=== PATIENT | female | born 1980 | race African-American/Black ===

== ENCOUNTER 2017-08-15 12:02 | Emergency (ER) | payer BC ==
[2017-08-15 13:05] VITALS: BP 137/81
--- NOTE | 2017-08-15 13:21 | UC ---
Throat Pain/Nasal Tavon HPI - HPI Summary HPI Summary: 36 Y/O female presents with complaint of malaise, chills, sinus congestion, and sore throat x 3 days. Denies nausea, vomiting, and shortness of breath. Blood pressure is elevated without history of HTN, most likely due to current illness. Has follow up planned with PMD. Medical history and medications reviewed and is negative for cardiac or respiratory disease. - History of Current Complaint Chief Complaint: UCRespiratory Stated Complaint: CONGESTED Time Seen by Provider: 08/15/17 13:12 Hx Obtained From: Patient Hx Last Menstrual Period: 04/15/16 ?: No Onset/Duration: Gradual Onset Severity: Moderate Pain Intensity: 6 Pain Scale Used: 0-10 Numeric Cough: Nonproductive Associated Signs & Symptoms: Positive: Negative - Allergies/Home Medications Allergies/Adverse Reactions: Allergies Allergy/AdvReac Type Severity Reaction Status Date / Time Chocolate AdvReac Headache Verified 10/15/15 18:18 Home Medications: Home Medications [id number] [Nyquil Severe Cold/Flu 5-6.25-10-325 mg/15Ml] 1 liq PO 08/15/17 [History] PMH/Surg Hx/FS Hx/Imm Hx Previously Healthy: Yes - Surgical History Surgical History: None - Family History Known Family History: Positive: Hypertension, Diabetes - Social History Alcohol Use: Rare Substance Use Type: None Smoking Status (MU): Never Smoked Tobacco Review of Systems Constitutional: Chills Skin: Negative Eyes: Negative ENT: Sore Throat Respiratory: Cough Cardiovascular: Negative Gastrointestinal: Negative Genitourinary: Negative Motor: Negative Neurovascular: Negative Musculoskeletal: Negative Neurological: Negative Psychological: Negative Is Patient Immunocompromised?: No All Other Systems Reviewed And Are Negative: Yes Physical Exam Triage Information Reviewed: Yes Appearance: Well-Appearing Vital Signs: Initial Vital Signs Temp 98.2 F 08/15/17 13:00 Pulse 91 08/15/17 13:00 Resp 18 08/15/17 13:00 BP 137/81 08/15/17 13:00 Pulse Ox 100 08/15/17 13:00 Vital Signs Reviewed: Yes Eye Exam: Normal ENT: Positive: Pharyngeal erythema, Tonsillar swelling Dental Exam: Normal Neck exam: Normal Neck: Positive: No Lymphadenopathy Respiratory Exam: Normal Respiratory: Positive: Lungs clear, Normal breath sounds Cardiovascular Exam: Normal Cardiovascular: Positive: RRR Abdominal Exam: Normal Bowel Sounds: Positive: Present Musculoskeletal Exam: Normal Neurological Exam: Normal Psychological Exam: Normal Skin Exam: Normal Throat Pain/Nasal Course/Dx - Differential Dx/Diagnosis Differential Diagnosis/HQI/PQRI: Influenza, Pharyngitis, Tonsillitis Provider Diagnoses: Viral illness, pharyngitis Discharge - Discharge Plan Condition: Stable Disposition: HOME Patient Education Materials: Pharyngitis (ED) Referrals: Tavon Pandya MD [Primary Care Provider] - Additional Instructions: Your strep and flu tests were negative. You most likely have a viral illness. Get plenty of rest and increase fluids. Please return to urgent care for worsening symptoms, difficulty swallowing fluids, or for shortness of breath.
== END 2017-08-15 13:45 | disposition home or self-care (01) ==
LOC: UCEAST 12:02
DX: B34.9 Viral infection, unspecified (principal); J02.9 Acute pharyngitis, unspecified
CPT/HCPCS: 87502; 87651; 99211; G0463

== ENCOUNTER 2018-01-17 07:22 | Emergency (ER) | payer BC ==
[2018-01-17 07:33] VITALS: BP 133/76
--- NOTE | 2018-01-17 08:25 | UC ---
Skin Complaint HPI - HPI Summary HPI Summary: Used hair relaxer about 3 weeks ago after which she developed an itchy rash on left side of neck, started as small area with 'bumps' but has expanded in size. Continues to be very itchy. Also c/o itchy rash on forearms which has occurred in the past. Denies fever, wheezing, SOB or dysphagia. - History of Current Complaint Chief Complaint: UCSkin Time Seen by Provider: 01/17/18 08:01 Stated Complaint: RASH Hx Obtained From: Patient Hx Last Menstrual Period: 12/30/17 Onset/Duration: Sudden Onset, Lasting Weeks Skin Exposure Onset/Duration: Weeks Ago Timing: Constant Onset Severity: Mild Current Severity: Moderate Pain Intensity: 0 Location: Discrete, Other - neck and arms Aggravating Factor(s): Nothing Alleviating Factor(s): Nothing Associated Signs & Symptoms: Positive: Negative Related History: Other: - use of hair products - Allergy/Home Medications Allergies/Adverse Reactions: Allergies Allergy/AdvReac Type Severity Reaction Status Date / Time chocolate Allergy Headache Uncoded 01/17/18 07:34 Review of Systems All Other Systems Reviewed And Are Negative: Yes PMH/Surg Hx/FS Hx/Imm Hx Previously Healthy: Yes - Surgical History Surgical History: None - Family History Known Family History: Positive: Hypertension, Diabetes - Social History Alcohol Use: Rare Substance Use Type: None Smoking Status (MU): Never Smoked Tobacco Physical Exam Triage Information Reviewed: Yes Vital Signs: Initial Vital Signs Temp 97.8 F 01/17/18 07:28 Pulse 79 01/17/18 07:28 Resp 16 01/17/18 07:28 BP 133/76 01/17/18 07:28 Pulse Ox 97 01/17/18 07:28 Vital Signs Reviewed: Yes Eyes: Positive: Conjunctiva Clear ENT: Positive: Hearing grossly normal, TMs normal Neck: Positive: Supple, Nontender, No Lymphadenopathy Respiratory: Positive: Chest non-tender, Lungs clear, Normal breath sounds, No respiratory distress Cardiovascular: Positive: RRR, No Murmur, Pulses Normal, Brisk Capillary Refill Abdomen Description: Positive: Nontender Bowel Sounds: Positive: Present Skin Exam: Other - papulo macular rash on left side of neck approximately 4x5 inches in dimension. No satellite lesions. Scattered fine papular rash on dorsum both forearms. Course/Dx - Course Course Of Treatment: skin reaction after applying hair product, start Prednisone orally and topical hydrocort. Continue with hydroxyzine tablets at night due to nocturnal pruritus, follow up with PCP to monitor blood pressure, f /u with dermatology - Diagnoses Provider Diagnoses: Allergic rash/contact dermatitis. Elevated BP without diagnosis of HTN Discharge - Sign-Out/Discharge Documenting (check all that apply): Discharge/Admit/Transfer - Discharge Plan Condition: Good Disposition: HOME Prescriptions: Hydrocortisone 2.5% CREAM(NF) 1 applic TOPICAL BID 7 Days #1 tube hydrOXYzine HCL TAB* [Atarax 25 MG TAB*] 25 mg PO BEDTIME PRN 20 Days #20 tab PRN Reason: Itching predniSONE TAB* [Deltasone 20 MG TAB*] 40 mg PO DAILY 3 Days #6 tab Patient Education Materials: Prednisone (By mouth), Hydroxyzine (By mouth), Hydrocortisone (On the skin), Allergies (ED), Hypertension (ED) Referrals: Tavon Pandya MD [Primary Care Provider] - - Billing Disposition and Condition Condition: GOOD Disposition: Home
== END 2018-01-17 08:23 | disposition home or self-care (01) ==
LOC: UCEAST 07:22
DX: L25.9 Unspecified contact dermatitis, unspecified cause (principal); R03.0 Elevated blood-pressure reading, without diagnosis of hypertension
CPT/HCPCS: 99212; G0463

== ENCOUNTER 2018-03-17 09:58 | Emergency (ER) | payer BC ==
--- NOTE | 2018-03-17 10:19 | UC ---
Eye Complaint HPI - HPI Summary HPI Summary: A 37 y/o F presents to [facility] [place] with c/o bilat eye itching and redness onset one week ago. She states her eyes are burning. Denies rhinorrhea, eye crusting. She s been using Visine-A to no relief. She took Zyrtec 1x last night which helped alleviate the sx. Pt does not wear contact lenses. She denies seasonal allergies. - History of Current Complaint Stated Complaint: EYE ISSUE Time Seen by Provider: 03/17/18 10:12 Hx Obtained From: Patient Hx Last Menstrual Period: 12/30/17 Onset/Duration: Lasting Weeks - 1 week, Still Present Timing: Constant Location of Injury: Conjunctiva Alleviating Factor(s): Other - Zyrtec Associated Signs And Symptoms: Negative: Drainage (Clear), Drainage (Purulent) - Allergies/Home Medications Allergies/Adverse Reactions: Allergies Allergy/AdvReac Type Severity Reaction Status Date / Time chocolate Allergy Headache Uncoded 03/17/18 10:20 PMH/Surg Hx/FS Hx/Imm Hx Previously Healthy: Yes - neg: allergies Other Respiratory History: neg: COPD Other GI/ History: neg: renal dz - Surgical History Surgical History: None - Family History Known Family History: Positive: Hypertension, Diabetes - Social History Occupation: Employed Full-time Lives: Alone Alcohol Use: Rare Substance Use Type: None Smoking Status (MU): Never Smoked Tobacco Review of Systems Constitutional: Other - neg: fever Eyes: Eye Redness - bilat, Other - pos: bilat eye itching; neg: eye crusting ENT: Other - neg: rhinorrhea All Other Systems Reviewed And Are Negative: Yes Physical Exam - Summary Physical Exam Summary: General: well-appearing, no pain distress Skin: warm, color reflects adequate perfusion, dry Head: normal Eyes: EOMI, NIKOLAY ENT: normal Neck: supple, nontender Respiratory: CTA, breath sounds present Cardiovascular: RRR Abdomen: soft, nontender Bowel: present Musculoskeletal: normal, strength/ROM intact Neurological: sensory/motor intact, A&O x3 Psychological: affect/mood appropriate Triage Information Reviewed: Yes Vital Signs Reviewed: Yes Eye Complaint Course/Dx - Course Course Of Treatment: BP noted and advised to follow up with PCP. Medications reviewed. Allergies noted. - Differential Dx/Diagnosis Provider Diagnoses: CONJUNCTIVITIS Discharge - Sign-Out/Discharge Documenting (check all that apply): Patient Departure - DC All imaging exams completed and their final reports reviewed: No Studies - Discharge Plan Condition: Stable Disposition: HOME Prescriptions: Ketotifen Fumarate [Allergy Eye Drops] 1 drop OP Q8H #5 ml Tobramycin 0.3% OPHTH.PAWAN* 1 drop BOTH EYES Q4H #1 btl Patient Education Materials: Conjunctivitis (ED) Referrals: Tavon Pandya MD [Primary Care Provider] - Additional Instructions: FOLLOW UP WITH YOUR DOCTOR IF NOT COMPLETELY IMPROVED. GET RECHECKED FOR ANY WORSENING OF YOUR CONDITION OR QUESTIONS OR CONCERNS. - Billing Disposition and Condition Condition: STABLE Disposition: Home - Attestation Statements Document Initiated by Scribe: Yes Documenting Scribe: Arlyn Mazariegos Provider For Whom Nolan is Documenting (Include Credential): Adrian Cortes MD Scribe Attestation: Arlyn Marshall, scribed for Adrian Cortes MD on 03/17/18 at 1201. Scribe Documentation Reviewed: Yes Provider Attestation: The documentation as recorded by the Arlyn dejesus accurately reflects the service I personally performed and the decisions made by Adrian lindsay MD
[2018-03-17 10:20] VITALS: BP 144/81
== END 2018-03-17 10:30 | disposition home or self-care (01) ==
LOC: UCEAST 09:58
DX: H10.9 Unspecified conjunctivitis (principal); Z91.018 Allergy to other foods
CPT/HCPCS: 99212; G0463

== ENCOUNTER 2018-10-30 07:26 | Emergency (ER) | payer BC ==
[2018-10-30 07:36] VITALS: BP 115/76
[2018-10-30 08:01] LABS: Influenza A Molecular POSITIVE (Negative)
--- NOTE | 2018-10-30 08:12 | UC ---
FLU HPI - HPI Summary HPI Summary: 38-year-old female presents with 3 day history of general malaise, fatigue, body aches, headache, fever, chills, nasal congestion, runny nose, sore throat, nonproductive cough, couple episodes of loose stool. States her son was diagnosed 4 days ago with the flu. Denies ear pain, dysphagia, chest pain, shortness of breath, abdominal pain, nausea, or vomiting. - History of Current Complaint Chief Complaint: UCGeneralIllness Stated Complaint: FEVER COUGH BODY ACHES Time Seen by Provider: 10/30/18 08:09 Hx Obtained From: Patient Hx Last Menstrual Period: 10/29/18 Pain Intensity: 9 - Allergy/Home Medications Allergies/Adverse Reactions: Allergies Allergy/AdvReac Type Severity Reaction Status Date / Time chocolate Allergy Headache Uncoded 10/30/18 07:34 PMH/Surg Hx/FS Hx/Imm Hx Previously Healthy: Yes - Denies significant PMH - Surgical History Surgical History: None - Family History Known Family History: Positive: Hypertension, Diabetes - Social History Occupation: Employed Full-time Lives: With Family Alcohol Use: Rare Substance Use Type: None Smoking Status (MU): Never Smoked Tobacco Review of Systems All Other Systems Reviewed And Are Negative: Yes Constitutional: Positive: Fever, Chills, Fatigue Skin: Negative: Rash Eyes: Negative: Drainage, Eye Redness ENT: Positive: Sore Throat, Nasal Discharge, Sinus Congestion. Negative: Sinus Pain/Tenderness Respiratory: Positive: Cough. Negative: Shortness Of Breath Cardiovascular: Negative: Palpitations, Chest Pain Gastrointestinal: Positive: Diarrhea. Negative: Abdominal Pain, Vomiting, Nausea Genitourinary: Positive: Negative Musculoskeletal: Positive: Myalgia Neurological: Positive: Headache Is Patient Immunocompromised?: No Physical Exam - Summary Physical Exam Summary: GENERAL APPEARANCE: Well developed, well nourished, alert and cooperative, and appears to be in no acute distress. EYES: Conjunctiva clear. No drainage. EARS: External auditory canals and tympanic membranes clear, hearing grossly intact. NOSE: Mild nasal congestion. No nasal discharge. THROAT: Pharyngeal erythema. No tonsilar inflammation, swelling, exudate, or lesions. Uvula midline. Oral cavity normal. Teeth and gingiva in good general condition. NECK: Neck supple, non-tender without lymphadenopathy. CARDIAC: Normal S1 and S2. No S3, S4 or murmurs. Rhythm is regular. There is no peripheral edema, cyanosis or pallor. Extremities are warm and well perfused. Capillary refill is less than 2 seconds. Peripheral pulses intact. LUNGS: Clear to auscultation without rales, rhonchi, wheezing or diminished breath sounds. ABDOMEN: Positive bowel sounds. Soft, nondistended, nontender. No guarding or rebound. No masses or hepatosplenomegally. MUSKULOSKELETAL: ROM intact to all extremities. No joint erythema or tenderness. Normal muscular development. Normal gait. SKIN: Skin normal color, texture and turgor with no lesions or eruptions. Triage Information Reviewed: Yes Vital Signs: Initial Vital Signs Temp 98.1 F 10/30/18 07:31 Pulse 100 10/30/18 07:31 Resp 18 10/30/18 07:31 BP 115/76 10/30/18 07:31 Pulse Ox 97 10/30/18 07:31 Vital Signs Reviewed: Yes Flu Course/Dx - Course Course Of Treatment: 38-year-old female presents with 3 day history of general malaise, fatigue, body aches, headache, fever, chills, nasal congestion, runny nose, sore throat, nonproductive cough, couple episodes of loose stool. States her son was diagnosed 4 days ago with the flu. Denies ear pain, dysphagia, chest pain, shortness of breath, abdominal pain, nausea, or vomiting. Afebrile. Vital signs stable. Exam was remarkable for mild nasal congestion, pharyngeal erythema, and a dry nonproductive cough. Considering the duration of her symptoms the patient is not a candidate for Tamiflu at this time therefore I'm recommending symptomatic treatment. She is to follow-up with primary care provider within 5 days if symptoms persist. Anticipatory guidance and warning symptoms were reviewed with the patient. Verbalizes understanding and agrees with plan of care. - Differential Dx/Diagnosis Differential Diagnosis/HQI/PQRI: Bronchitis, Influenza, Pneumonia, Upper Respiratory Infection Provider Diagnosis: Influenza A Discharge - Sign-Out/Discharge Documenting (check all that apply): Patient Departure All imaging exams completed and their final reports reviewed: No Studies - Discharge Plan Condition: Stable Disposition: HOME Prescriptions: Benzonatate CAP* [Tessalon 100 MG CAP*] 100 mg PO TID PRN #30 cap PRN Reason: Cough Patient Education Materials: Influenza (ED) Referrals: Tavon Pandya MD [Primary Care Provider] - 5 Days Additional Instructions: Your flu test in the clinic today was positive for influenza A. Get plenty of rest. Drink plenty of fluids to avoid dehydration especially if you are running any fever. Take over the counter acetaminophen (Tylenol) or ibuprofen (Advil, Motrin) according to directions as needed for pain or fever. Take Tessalon Perles 1 cap every 8 hours as needed for cough. Use salt water gargles several times a day if you have a sore throat. You may also use Chloraseptic spray or Cepacol lonzenges according to directions which contain a numbing medication and can provide some temporary relief from your sore throat. Follow up with your primary care provider within 5 days if symptoms persist. Seek immediate medical attention in the emergency room if you have fever greater than 100.5 F despite taking acetaminophen or ibuprofen, have chest pain , difficulty breathing, are unable to swallow, or have any worsening of symptoms. - Billing Disposition and Condition Condition: STABLE Disposition: Home
== END 2018-10-30 08:36 | disposition home or self-care (01) ==
LOC: UCEAST 07:26
DX: J10.1 Influenza due to other identified influenza virus with other respiratory manifestations (principal)
CPT/HCPCS: 87651; 99212; G0463

== ENCOUNTER 2019-06-18 07:52 | Emergency (ER) | payer BC ==
[2019-06-18 08:15] VITALS: BP 127/80
--- NOTE | 2019-06-18 08:58 | UC ---
Ear Complaint HPI - HPI Summary HPI Summary: 38-year-old woman comes in with chief complaint of right ear pain. Started forward days ago when she felt like her right ear was plugged. She put some hydrogen peroxide in there and since then every is gotten worse she did not get any earwax out. Does have a cough but denies any runny nose sore throat. No fevers or chills. Patient does get cerumen impaction and has had her ear is irrigated before for the cerumen impaction. - History of Current Complaint Chief Complaint: UCEar Stated Complaint: EAR PAIN, JAW PAIN Time Seen by Provider: 06/18/19 08:47 Hx Last Menstrual Period: 06/08/19 Pain Intensity: 10 - Allergies/Home Medications Allergies/Adverse Reactions: Allergies Allergy/AdvReac Type Severity Reaction Status Date / Time chocolate Allergy Headache Uncoded 06/18/19 08:09 PMH/Surg Hx/FS Hx/Imm Hx Previously Healthy: Yes - Surgical History Surgical History: None - Family History Known Family History: Positive: Hypertension, Diabetes - Social History Alcohol Use: None Substance Use Type: None Smoking Status (MU): Never Smoked Tobacco Review of Systems All Other Systems Reviewed And Are Negative: Yes Constitutional: Positive: Negative Skin: Positive: Negative Eyes: Positive: Negative ENT: Positive: Ear Ache Respiratory: Positive: Cough Cardiovascular: Positive: Negative Gastrointestinal: Positive: Negative Motor: Positive: Negative Neurovascular: Positive: Negative Musculoskeletal: Positive: Negative Neurological: Positive: Negative Psychological: Positive: Negative Is Patient Immunocompromised?: No Physical Exam Triage Information Reviewed: Yes Appearance: Well-Appearing, No Pain Distress, Well-Nourished Vital Signs: Initial Vital Signs Temp 98.2 F 06/18/19 08:10 Pulse 76 06/18/19 08:10 Resp 18 06/18/19 08:10 BP 127/80 06/18/19 08:10 Pulse Ox 99 06/18/19 08:10 Vital Signs Reviewed: Yes Eye Exam: Normal Eyes: Positive: Conjunctiva Clear ENT: Positive: Pharynx normal, Other - Right tragus is tender to palpation. There is cerumen impaction in the right side that obscures the TM. There is also cerumen on the left side that almost completely obscures the TM. No tragus tenderness on the left side.. Negative: Nasal drainage Neck: Positive: Supple Respiratory: Positive: Lungs clear, Normal breath sounds, No respiratory distress Cardiovascular: Positive: RRR Musculoskeletal: Positive: Strength Intact, ROM Intact Neurological: Positive: Alert Psychological: Positive: Age Appropriate Behavior Skin Exam: Normal Ear Complaint Course/Dx - Differential Dx/Diagnosis Provider Diagnosis: Impacted cerumen of both ears, Right otitis externa Discharge ED - Sign-Out/Discharge Documenting (check all that apply): Patient Departure All imaging exams completed and their final reports reviewed: No Studies - Discharge Plan Condition: Stable Disposition: HOME Prescriptions: Ofloxacin 0.3% (Ear Drop)* [Floxin 0.3% OTIC.PAWAN (Ear Drop)] 5 drop RIGHT EAR BID #1 btl Patient Education Materials: Cerumen Impaction (ED), Otitis Externa (ED) Referrals: Tavon Pandya MD [Primary Care Provider] - Additional Instructions: FOLLOW UP WITH YOUR DOCTOR IF NOT COMPLETELY IMPROVED. GET REEVALUATED SOONER IF NOT IMPROVED OR WORSE OR ANY QUESTIONS OR CONCERNS. - Billing Disposition and Condition Condition: STABLE Disposition: Home
== END 2019-06-18 09:29 | disposition home or self-care (01) ==
LOC: UCEAST 07:52
DX: H61.23 Impacted cerumen, bilateral (principal); H60.91 Unspecified otitis externa, right ear; Z91.018 Allergy to other foods
CPT/HCPCS: 99213; G0463